=== PATIENT | male | born 1965 | race Native Hawaiian/Other Pacific Islander ===

== ENCOUNTER 2019-05-23 07:20 | Outpatient (CLI) | payer BC | END 2019-05-23 19:05 | disposition home or self-care (01) | LOC: US 07:20 | DX: R11.2 Nausea with vomiting, unspecified (principal); R10.11 Right upper quadrant pain; R10.13 Epigastric pain; E11.65 Type 2 diabetes mellitus with hyperglycemia; I10 Essential (primary) hypertension ==

== ENCOUNTER 2019-06-04 11:55 | Outpatient (CLI) | payer BC | END 2019-06-04 22:32 | disposition home or self-care (01) | LOC: NM 11:55 | DX: R11.2 Nausea with vomiting, unspecified (principal); R10.11 Right upper quadrant pain; R10.13 Epigastric pain; E11.65 Type 2 diabetes mellitus with hyperglycemia; I10 Essential (primary) hypertension; R10.12 Left upper quadrant pain | CPT/HCPCS: A9537 ==